=== PATIENT | male | born 1995 | race African-American/Black ===

== ENCOUNTER 2016-07-13 08:27 | Emergency (ER) | payer SELFPAY ==
[~2016-07-13] VITALS: Ht 167.6 cm; Wt 85.0 kg
[2016-07-13 08:36] VITALS: BP 140/74; PULSE 80; RESP 20; TEMP 97.8; O2SAT 98
--- NOTE | 2016-07-13 08:43 | PD ---
HPI . impacted tooth for quite some time Chief Complaint: Oral / Dental Pain or Problem Time Seen by Provider: 08:35 Travel History International Travel<30 days: No Contact w/Intl Traveler<30days: No Traveled to known affect area: No History of Present Illness HPI 21-year-old male with no significant past medical history here with complaints of impacted wisdom tooth for quite some time. Patient tells me that he does not have dental or health insurance and decided to come into the emergency room to see if there was anything that we can do about his tooth. Has any fever or chills. He denies any fluid collection. He has no other complaints. PFSH Social History Alcohol Use: Yes (SOCIALLY) Tobacco Use: No Substance Use: No Allergies-Medications (Allergen,Severity, Reaction): Coded Allergies: No Known Allergies (Unverified , 01/30/16) Reported Meds & Prescriptions Reported Meds & Active Scripts Active No Active Prescriptions or Reported Medications Review of Systems General / Constitutional: No: Fever Eyes: No: Visual changes HENT: Positive: Dental Difficulties, No: Headaches Cardiovascular: No: Chest Pain or Discomfort Respiratory: No: Shortness of Breath Gastrointestinal: No: Abdominal Pain Genitourinary: No: Dysuria Musculoskeletal: No: Pain Skin: No Rash Neurologic: No: Weakness Psychiatric: No: Depression Endocrine: No: Polydipsia Hematologic/Lymphatic: No: Easy Bruising Physical Exam Narrative GENERAL: AAO x 3, no acute distress, Well-nourished, well-developed patient. SKIN: Warm and dry. No visible rashes or bruising. HEAD: Normocephalic and atraumatic. EYES: No scleral icterus. No injection or drainage. ENT: No nasal drainage noted. Mucous membranes pink. Airway patent. #17 partially impacted; no fluid collection or evidence of abscess formation. rest of oropharynx wnl NECK: Supple, trachea midline. No JVD. no lymphadenopathy CARDIOVASCULAR: Regular rate and rhythm without murmurs, gallops, or rubs. RESPIRATORY: Breath sounds equal bilaterally. No accessory muscle use. No rhonchi or rales. GASTROINTESTINAL: visual inspection normal EXTREMITIES: No cyanosis or edema. BACK: Nontender without obvious deformity. No CVA tenderness. PSYCH: AAO x 3, normal affect. Data Data Last Documented VS Vital Signs Date Time Temp Pulse Resp B/P Pulse Ox O2 Delivery O2 Flow Rate FiO2 5/25/17 08:36 97.8 80 20 140/74 98 Room Air MDM Medical Decision Making Medical Screen Exam Complete: Yes Emergency Medical Condition: No Medical Record Reviewed: Yes Differential Diagnosis dentalgia, impacted wisdom tooth, less likely oral abscess Narrative Course A medical screening exam was performed: At the time of evaluation the presenting medical condition was determined not to be of an emergent nature. The patient was given the option of receiving additional care, but declined. Patient was given options for additional community resources from which to obtain care. The Patient Has Been advised to seek medical attention for their presenting complaint. The patient has been advised to return to the ER at any time if an emergent condition develops. I explained to the patient that this tooth will need to be extracted and unfortunately we do not have dentists in the ED. We provided him with resources for local dentist. Diagnosis Primary Impression: Encounter for medical screening examination Scripts No Active Prescriptions or Reported Meds Condition: Stable Paloma Rodríguez July 13, 2016 08:43
== END 2016-07-13 08:45 | disposition left against medical advice (07) ==
LOC: NEPK 08:27
DX: K01.1 Impacted teeth (principal)
CPT/HCPCS: 99281